=== PATIENT | male | born 1990 | race Two or more races ===

== ENCOUNTER 2024-03-24 20:32 | Emergency (ER) | payer MEDICAID ==
[~2024-03-24] VITALS: Ht 172.7 cm; Wt 139.5 kg
[2024-03-24 21:08] VITALS: BP 150/95; PULSE 96; RESP 20; TEMP 97.8; O2SAT 95
[2024-03-24] MEDS ORDERED: PRED20TA2 PO (23:30)
[2024-03-24] MEDS ORDERED: CLIN1CAP70 PO (23:30)
[2024-03-25] MEDS: cefTRIAXone SOD 1,000 MG VL IM ONE (00:43)
[2024-03-25] MEDS: methylPREDNISolone SOD SUCC 125 MG/2 ML VL IM ONE (01:24)
[2024-03-25] MEDS: TETANUS-DIPTH-ACEL PERTUSSIS 0.5ML SYR Tdap IM ONE (01:24)
== END 2024-03-25 01:33 | disposition home or self-care (01) ==
LOC: ER 20:32
DX: L03.116 Cellulitis of left lower limb (principal); S90.562A Insect bite (nonvenomous), left ankle, initial encounter; Z79.52 Long term (current) use of systemic steroids; W57.XXXA Bitten or stung by nonvenomous insect and other nonvenomous arthropods, initial encounter; Y93.89 Activity, other specified; Y92.89 Other specified places as the place of occurrence of the external cause; Y99.8 Other external cause status
CPT/HCPCS: 90471; 90715; 96372; 99284; J0696; J2919